=== PATIENT | male | born 1965 | race Caucasian/White ===

== ENCOUNTER 2017-08-02 09:22 | Outpatient (CLI) | payer BC | END 2017-08-02 09:23 | disposition home or self-care (01) | LOC: BICMRI 09:22 | PROVIDERS: ATTEND Orthopaedic Surgery | DX: M51.17 Intervertebral disc disorders with radiculopathy, lumbosacral region (principal); M48.061 Spinal stenosis, lumbar region without neurogenic claudication; M48.07 Spinal stenosis, lumbosacral region; M21.952 Unspecified acquired deformity of left thigh; M25.552 Pain in left hip; M16.12 Unilateral primary osteoarthritis, left hip | CPT/HCPCS: 72148; 72195 ==

== ENCOUNTER 2019-02-25 06:41 | Outpatient (CLI) | payer BC ==
--- NOTE | 2019-02-26 14:18 | EKG ---
Test Reason : Blood Pressure : / mmHG Vent. Rate : 084 BPM Atrial Rate : 084 BPM P-R Int : 166 ms QRS Dur : 100 ms QT Int : 354 ms P-R-T Axes : 049 -01 021 degrees QTc Int : 418 ms Normal sinus rhythm Incomplete right bundle branch block Moderate voltage criteria for LVH, may be normal variant Borderline ECG No previous ECGs available Confirmed by STEVE CLEVELAND, DR. Shaw ([id number]) on 02/26/2019 2:17:36 PM Referred By: LAURA Confirmed By:DR. Colin WILSON MD
== END 2019-02-25 06:42 | disposition home or self-care (01) ==
LOC: LABBT 06:41
PROVIDERS: ATTEND Neurological Surgery
DX: Z01.810 Encounter for preprocedural cardiovascular examination (principal); M54.16 Radiculopathy, lumbar region
CPT/HCPCS: 93005; 93010

== ENCOUNTER 2019-03-04 07:17 | Day surgery (SDC) | payer BC ==
[2019-02-25 16:40] VITALS: BMI 41.5
[2019-03-04] MEDS ORDERED: Fentanyl 100 MCG/2 ML VIAL ONE ×2 (10:29→12:48)
[2019-03-04] MEDS ORDERED: Lidocaine 2% Jelly 5 ML TUBE ONE (10:29)
[2019-03-04] MEDS ORDERED: Bupivacaine PF 0.5% 30 ML VIAL ONE (10:50)
[2019-03-04] MEDS ORDERED: HYDROcodone/Acetaminophen 5/325 mg Tablet ONE (13:05)
[2019-03-04] MEDS ORDERED: Tamsulosin HCl 0.4 MG CAP ONE (13:20)
[2019-03-04] MEDS ORDERED: Ketorolac Tromethamine 30 MG/ML VIAL ONE (13:56)
[2019-03-04] MEDS ORDERED: Glycopyrrolate 0.2 MG/ML 5 ML SYRINGE ONE (13:56)
[2019-03-04] MEDS ORDERED: Dexamethasone 20 MG/5 ML VIAL ONE (13:56)
[2019-03-04] MEDS ORDERED: Rocuronium Bromide 10 MG/ML (10ML VIAL) ONE (13:56)
[2019-03-04] MEDS ORDERED: Lidocaine 1% PF 5 ML VIAL ONE (13:56)
[2019-03-04] MEDS ORDERED: PROPOFOL 200 MG/20 ML VIAL ONE (13:56)
[2019-03-04] MEDS ORDERED: Ondansetron PF 4 MG/2 ML Vial ONE (13:56)
--- NOTE | 2019-03-04 17:18 | OP ---
DATE OF PROCEDURE: 03/04/2019 COSMETICIAN APPRENTICE: Kike Young PA-C INDICATION: Pain. DIAGNOSIS: Lumbar radiculopathy. PROCEDURE PERFORMED: Left L4-L5 decompression. ANESTHESIA: General. DESCRIPTION OF PROCEDURE: The patient was brought into the operating room, placed under general anesthesia. He was flipped from the supine to prone position on operating room table. A linear incision was planned over the L4-L5 segment. After prepping and draping and after an appropriate operative pause, the incision was created. The soft tissues were swept left of midline. Self-retaining retractors were placed in the wound for optimal exposure. After confirming the appropriate level with C-arm fluoroscopy, high-speed cutting drill bit as well as 2 and 3 mm Kerrisons were used to perform a laminectomy along the inferior aspect of L4 and the superior aspect of L5. The laminectomy was extended laterally to encompass the medial aspect of the facet joint in order to adequately decompress the lateral recess, and therefore, the descending left L5 nerve root. After completing the decompression, the wound was irrigated. Hemostasis was maintained throughout. The wound was then closed in anatomic layers and a pressure dressing was applied. There were no known procedural complications. Job ID: [id number]
== END 2019-03-04 15:55 | disposition home or self-care (01) ==
LOC: SDC 07:17
PROVIDERS: ATTEND Neurological Surgery
PROC: 00NY0ZZ Release Lumbar Spinal Cord, Open Approach (ICD-10-PCS; principal; 2019-03-04)
DX: M54.16 Radiculopathy, lumbar region (principal); I10 Essential (primary) hypertension; Z79.899 Other long term (current) drug therapy
CPT/HCPCS: 76000; J0690; J1100; J1885; J2001; J2405; J2704; J3010; S0020

== ENCOUNTER 2019-08-21 10:37 | Outpatient (CLI) | payer BC ==
--- NOTE | 2019-08-21 11:13 | RAD ---
RADIOGRAPH LUMBAR SPINE 4 VIEWS: DATE: 08/21/2019 HISTORY: 54-year-old male with lumbar radiculopathy. TECHNIQUE: All views are standing. AP. Lateral views in flexion, neutral, and extension. COMPARISON: 08/22/2017 FINDINGS: For the purposes of this report, the level with hypoplastic ribs will be designated as T12. 5 lumbar type vertebrae inferior to that level. Minimal chronic anterior wedging of L1, T12, and T11. Lumbar vertebral body heights are maintained. Grade 1 anterolisthesis of L4 on L5 which is minimally worse u donal flexion and minimally improved upon extension. Severe degenerative facet hypertrophy on the right at L4-5. Mild disc space narrowing at several levels, especially L4-5. No severe disc space chavo rowing. No major interval change. IMPRESSION: 1. Grade 1 spondylolisthesis, minimally unstable, at L4-5, due to facet osteoarthrosis. 2. No interval change.
--- NOTE | 2019-08-21 12:37 | MRI ---
LUMBAR SPINE MRI WITHOUT IV CONTRAST: Date: 08/21/2019 HISTORY: Lumbar radiculopathy. TECHNIQUE: Multiplanar, multisequence MRI examination of lumbar spine is performed without IV contrast. FINDINGS: Scattered disc desiccation changes and degenerative changes and facet arthrosis changes. Evidence for postsurgical change dorsally at the L4-L5 level. Conus medullaris region is unremarkable. No evidenc e for acute abnormal marrow edema. T12-L1: No significant stenosis. L1-L2: Mild disc bulging, but without significant associated stenosis. L2-L3: Slight lateral recess stenosis. L3-L4: Mild central canal and moderate lateral recess stenosis with a small focal protrusion in the right paracentral region and slightly more marked right ventral lateral recess stenosis. L4-L5: Very mild Grade I anterolisthesis of L4 on L5. Moderate central canal and lateral recess sten osis, worse on the left side, with bilateral foraminal stenosis, moderate. L5-S1: Large right paracentral focal protrusion with right lateral recess stenosis and right foramin al stenosis and some depression of the right S1 nerve root. IMPRESSION: Large right paracentral disc protrusion with right lateral recess and right foraminal stenosis and de pression of the right S1 nerve root. Additional stenotic changes at L4-L5 with very mild Grade I ante rolisthesis at L3-L4 levels as above. POS: C
== END 2019-08-21 10:38 | disposition home or self-care (01) ==
LOC: TBSIIMAG 10:37
PROVIDERS: ATTEND Neurological Surgery
DX: M47.26 Other spondylosis with radiculopathy, lumbar region (principal); M43.16 Spondylolisthesis, lumbar region; M51.26 Other intervertebral disc displacement, lumbar region; G58.8 Other specified mononeuropathies
CPT/HCPCS: 72120; 72148

== ENCOUNTER 2020-02-26 06:24 | Outpatient (CLI) | payer BC ==
[2020-02-26 10:17] LABS: Anion Gap 17 mmol/L (10-20); BUN (Urea Nitrogen) 13 mg/dL (8.4-25.7); Calc. Creatinine Clearance 0 mL/min (70-130); Carbon Dioxide 23 mmol/L (22-29); Chloride 103 mmol/L (98-107); Estimated GFR-MDRD Greater than 90; Glucose 106 mg/dL (70-105); Potassium 3.9 mmol/L (3.5-5.1); Sodium 139 mmol/L (136-145)
[2020-02-26 17:05] LABS: SARS-CoV-2 MS2 Positive; SARS-CoV-2 N Gene Negative; SARS-CoV-2 S Gene Negative; SARS-CoV-2 by NAA Not Detected (NotDetected); SARS-CoV-2 orf1ab Negative
== END 2020-02-26 06:25 | disposition home or self-care (01) ==
LOC: LABBT 06:24
PROVIDERS: ATTEND Neurological Surgery
DX: Z01.818 Encounter for other preprocedural examination (principal); M54.16 Radiculopathy, lumbar region; Z20.828 Contact with and (suspected) exposure to other viral communicable diseases
CPT/HCPCS: 80048; 87635; 93005; 93010; U0003

== ENCOUNTER 2020-03-02 05:27 | Day surgery (SDC) | payer BC ==
[2020-02-25 13:39] VITALS: BMI 37.2
--- NOTE | 2020-03-01 21:44 | HP ---
HISTORY OF PRESENT ILLNESS: Mr. Chavez is a 54-year-old man known to us for prior left-sided L4-5 decompression performed nearly one year ago. He presents now with left-sided buttock pain that radiates to L5 and partial S1 pattern and stops at the knee. He has had an updated MRI, TBSI as well as flexion-extension views of the lumbar spine. Both of these show slight grade 1 spondylolisthesis at L4-L5 with minimal motion. There is a still significant pathology on the right including disk bulge at L4-L5 and at L3, although he has no pain on the right side. In the left, he does have L4-5 lateral recess stenosis from scar and what appears to be possible synovial cyst. He has attempted injections by Dr. Michaud, but none of them provided lasting relief. He hopes to discuss possible surgical intervention. PAST MEDICAL HISTORY: Chronic pain syndrome, hypertension, osteoarthritis. PAST SURGICAL HISTORY: Herniorrhaphy, lumbar decompression. MEDICATIONS: 1. Tramadol. 2. Gabapentin. 3. Meloxicam. 4. Tylenol. 5. Lisinopril. ALLERGIES: NO KNOWN DRUG ALLERGIES. PHYSICAL EXAMINATION: Deferred for telehealth visit. ASSESSMENT: Lumbar radiculopathy. PLAN: Dr. Littlejohn met with the patient. Imaging advocated for bilateral reoperation of L4-5 decompression. We explained to the patient the risks, benefits, and alternatives to the procedure. The patient expressed understanding and elected to moved forward with surgery as discussed. I do believe the patient is mentally competent capable of making medical decisions for himself. We will move forward with surgery as planned. Job ID: [id number]
[2020-03-02] MEDS ORDERED: Fentanyl 250 MCG/5 ML VIAL ONE (06:20)
[2020-03-02] MEDS ORDERED: Bupivacaine PF 0.5% 30 ML VIAL ONE (06:48)
[2020-03-02] MEDS ORDERED: EPINEPHrine 1 MG/ML AMP ONE (06:48)
[2020-03-02] MEDS ORDERED: Thrombin 5000 UNITS/5 ML VIAL ONE (06:48)
[2020-03-02] MEDS ORDERED: SUGAMMADEX SODIUM 500 MG/5 ML VIAL ONE (08:31)
[2020-03-02] MEDS ORDERED: SUGAMMADEX SODIUM 200 MG/2 ML VIAL ONE (08:32)
--- NOTE | 2020-03-02 08:50 | OP ---
DATE OF PROCEDURE: 03/02/2020 OPERATIONS INTERN: Kike Young PA-C INDICATION: Pain. DIAGNOSIS: Lumbar stenosis with underlying lumbar radiculopathy. PROCEDURE PERFORMED: Reoperation of L4-5 decompression. ANESTHESIA: General. DESCRIPTION OF PROCEDURE: The patient was brought into the operating room and placed under general anesthesia. He was flipped from the supine to prone position on the operating room table. A linear incision was planned at the L4-L5 segment which encompassed an area of a prior incision. After prepping and draping and after an appropriate preoperative pause, the incision was created. The soft tissues were swept away from midline. A self-retaining retractor was placed for optimal exposure. After confirming the appropriate level with C-arm fluoroscopy, an Adson rongeur was used to remove the spinous process along the inferior aspect of L4 and the superior aspect of L5. The laminectomy was completed using high-speed cutting drill bit as well as 2, 3, and 4 mm Kerrisons. The laminectomy was extended laterally to encompass the medial aspect of the facet joints. There did appear to be synovial cyst present on the right side that was not evident on the MRI scan. This was carefully removed. After completing the procedure, the L4-5 central canal as well as lateral recesses were decompressed bilaterally. After completing the decompression, the wound was irrigated. Hemostasis was maintained throughout. The wound was then closed in anatomic layers, and a pressure dressing was applied. There were no known procedural complications. Job ID: [id number]
[2020-03-02] MEDS ORDERED: Fentanyl 100 MCG/2 ML VIAL ONE (08:55)
[2020-03-02] MEDS ORDERED: Tamsulosin HCl 0.4 MG CAP ONE (09:46)
[2020-03-02] MEDS ORDERED: HYDROcodone/Acetaminophen 5/325 mg Tablet ONE (10:24)
[2020-03-02] MEDS ORDERED: Lidocaine 1% PF 5 ML VIAL ONE (13:46)
[2020-03-02] MEDS ORDERED: ePHEDrine 50 MG/ML VIAL ONE (13:46)
[2020-03-02] MEDS ORDERED: Glycopyrrolate 0.2 MG/ML 5 ML SYRINGE ONE (13:46)
[2020-03-02] MEDS ORDERED: PROPOFOL 200 MG/20 ML VIAL ONE (13:46)
[2020-03-02] MEDS ORDERED: Ketorolac Tromethamine 30 MG/ML VIAL ONE (13:46)
[2020-03-02] MEDS ORDERED: Ondansetron PF 4 MG/2 ML Vial ONE (13:46)
[2020-03-02] MEDS ORDERED: Dexamethasone 20 MG/5 ML VIAL ONE (13:46)
[2020-03-02] MEDS ORDERED: Rocuronium Bromide 10 MG/ML (10ML VIAL) ONE (13:46)
== END 2020-03-02 11:00 | disposition home or self-care (01) ==
LOC: SDC 05:27
PROVIDERS: ATTEND Neurological Surgery
PROC: 00NY0ZZ Release Lumbar Spinal Cord, Open Approach (ICD-10-PCS; principal; 2020-03-02)
DX: M48.061 Spinal stenosis, lumbar region without neurogenic claudication (principal); M54.16 Radiculopathy, lumbar region; M43.16 Spondylolisthesis, lumbar region; G89.4 Chronic pain syndrome; I10 Essential (primary) hypertension; M19.90 Unspecified osteoarthritis, unspecified site; Z79.899 Other long term (current) drug therapy
CPT/HCPCS: 76000; J0171; J0690; J1100; J1885; J2405; J2704; J3010; J3490; S0020

== ENCOUNTER 2020-05-27 10:30 | Inpatient (IN) | payer BC ==
[2020-05-29 13:26] VITALS: BMI 36.9
[2020-06-01] MEDS ORDERED: Fentanyl 100 MCG/2 ML VIAL ONE (06:26)
[2020-06-01] MEDS ORDERED: Midazolam HCl 2 mg/2 ml Vial ONE (06:26)
[2020-06-01] MEDS ORDERED: Vancomycin 1.5 GRAM/300 ML BAG ONE (06:49)
[2020-06-01] MEDS ORDERED: Tranexamic Acid 1,000 MG/10 ML VIAL ONE (06:49)
[2020-06-01] MEDS ORDERED: Sodium Chloride 0.9% 100 ML ONE (06:49)
[2020-06-01] MEDS ORDERED: Acetaminophen 325 MG TAB PO PRN (06:55)
[2020-06-01] MEDS ORDERED: Promethazine HCl 25 MG/ML VIAL IM PRN ×3 (06:55→08:00)
[2020-06-01] MEDS ORDERED: diphenhydrAMINE 25 MG CAP PO PRN ×2 (06:55→07:00)
[2020-06-01] MEDS ORDERED: Ondansetron PF 4 MG/2 ML Vial IVP PRN ×2 (06:55→07:00)
[2020-06-01] MEDS ORDERED: HYDROcodone/Acetaminophen 10/325 mg Tablet PO PRN ×2 (06:55)
[2020-06-01] MEDS ORDERED: Zolpidem Tartrate 5 MG TAB PO PRN ×2 (06:55→07:00)
[2020-06-01] MEDS ORDERED: Acetaminophen 500 MG TAB PO PRN (06:56)
[2020-06-01] MEDS ORDERED: Naloxone HCl 0.4 mg/ml Vial IV PRN (07:00)
[2020-06-01] MEDS ORDERED: diphenhydrAMINE 50 MG/ML VIAL IM PRN (07:00)
[2020-06-01] MEDS ORDERED: traMADol HCl 50 MG TAB PO PRN ×2 (07:00)
[2020-06-01] MEDS ORDERED: Bupivacaine 0.25% 10 ML VIAL EPIDURAL PRN (07:00)
[2020-06-01] MEDS ORDERED: Promethazine HCl 25 MG SUPP PR PRN (07:00)
[2020-06-01] MEDS ORDERED: Naloxone HCl 0.4 mg/ml Vial IVP PRN (07:00)
[2020-06-01] MEDS ORDERED: diphenhydrAMINE 50 MG/ML VIAL IVP PRN (07:00)
[2020-06-01] MEDS ORDERED: Hydrocerin (Eucerin) Cream 120 gm Jar TOP PRN (07:00)
[2020-06-01] MEDS ORDERED: HYDROcodone/Acetaminophen 5/325 mg Tablet PO PRN ×2 (07:00)
[2020-06-01] MEDS ORDERED: Ropivacaine 0.5% HCl/PF (150 MG/30 ML VIAL) ONE (07:04)
[2020-06-01] MEDS ORDERED: Ondansetron HCl/PF 4 MG/2 ML Vial IVP PRN (08:00)
[2020-06-01] MEDS ORDERED: Promethazine HCl 25 MG/ML VIAL SLOW IVP PRN (08:00)
[2020-06-01] MEDS ORDERED: Promethazine HCl 25 MG/ML VIAL ONE (08:58)
[2020-06-01] MEDS ORDERED: Non-Formulary Item 1 EACH (Multivitamin [Multi-Vitamin Daily] 1 TABLET Tablet) PO SCH (09:00)
--- NOTE | 2020-06-01 09:13 | OP ---
DATE OF PROCEDURE: 06/01/2020 PROCEDURE PERFORMED: Left total hip arthroplasty using a [place] Accolade II stem, size 5 with a 36 mm, +5 ceramic head, a 54 mm acetabulum with a 36 mm X3 liner. REHAB TECH: Nilo. ESTIMATED BLOOD LOSS: 200. SPECIMEN: None. DRAINS: None. COMPLICATIONS: None. DESCRIPTION OF PROCEDURE: After informed consent was obtained in the preoperative holding area, the patient was taken to the operative suite where general anesthesia was induced. The patient was then positioned in the lateral decubitus position. The hip was then prepped and draped in usual sterile fashion. The patient received preoperative antibiotics. Prior to incision, time-out was called and all members of the surgical team agreed upon site, surgeon, and patient. After this, a longitudinal incision was made directly over the trochanter, noted by palpation extending 2 fingerbreadths above and below the trochanter. The deeper subcutaneous layer was undermined with Bovie electrocautery. The iliotibial band was encountered and incised sharply and the plane below this was developed bluntly. A Charnley retractor was placed to hold this opened. The lateral aspect of the trochanter and the abductor muscles were encountered and then reflected anteriorly off the trochanter using Bovie electrocautery. Once this was completed, the anterior capsule was then encountered and identified and copious capsulotomy was carried out, exposing the femoral neck and head. Dislocation maneuver was then performed and an in situ provisional neck cut was then made using the oscillating saw. Attention was then turned to acetabular preparation and sequential reaming was carried out up to the appropriate diameter. A trial was then malleted into place with good firm resistance and no pullout. The permanent acetabular shell was then malleted squarely into place, as was the appropriate liner. Once completed, the wound was copiously irrigated and attention was then turned to femoral preparation. Flexion and external rotation were performed of the exposed thigh and femoral elevators were then placed at the proximal aspect of the wound. Canal finder was used to establish the length of the canal and sequential reaming was carried out, followed by broaching. Once the appropriate stability was established with the trial broaches with flexion, extension and rotational stability, we did trial with neutral and 2 mm offset incremental necks. Once the appropriate size was decided upon, with good stability noted with flexion, extension, internal and external rotation and shuck being negative, we removed the femoral trial broach and malletted into place the permanent prosthesis with good firm fit, which was also stable to rotation. Again, the hip felt very stable to flexion, extension, internal and external rotation. Leg lengths appeared near anatomic clinically and we were quite happy with prosthesis placement. Copious irrigation was then carried out through the entirety of the wound. Primary closure of the abductors was accomplished with interrupted #2 Vicryl [id number] stitches and the IT band was then closed with interrupted #2 Vicryl, oversewn with a #2 running barbed Quill stitch. Subcutaneous fascia was closed with running barbed Quill stitch and a subcuticular Monocryl barbed Quill stitch was used for skin closure and augmented with skin cement. A sterile dressing was applied. The procedure was terminated without any complication. All counts were correct. The patient was awakened in the operative suite and taken to the recovery room in stable condition. The district administrative assistant/co-surgeon was present through the entire procedure and was responsible for providing exposure, tissue retraction and any necessary limb or tissue manipulation required to obtain necessary reduction or hardware placement. The district administrative assistant/co-surgeon also provided bleeding control, tissue closure, and suturing in conjunction with the primary surgeon. Job ID: [id number]
[2020-06-01] MEDS: Sodium Chloride 0.9% 1,000 ML IV SCH ×2 (09:40→18:05)
[2020-06-01] MEDS ORDERED: PROPOFOL 200 MG/20 ML VIAL ONE (09:49)
[2020-06-01] MEDS ORDERED: Lidocaine 1.5% w/Epi 1:200K 30 ML VIAL (Epid Use) ONE (09:49)
[2020-06-01] MEDS ORDERED: Rocuronium Bromide 10 MG/ML (10ML VIAL) ONE (09:49)
[2020-06-01] MEDS ORDERED: ePHEDrine 50 MG/ML VIAL ONE (09:49)
[2020-06-01] MEDS ORDERED: Dexamethasone 20 MG/5 ML VIAL ONE (09:49)
[2020-06-01] MEDS ORDERED: Lidocaine 1% PF 5 ML VIAL ONE (09:49)
[2020-06-01] MEDS ORDERED: Ondansetron PF 4 MG/2 ML Vial ONE (09:49)
[2020-06-01] MEDS: Lisinopril/Hydrochlorothiazide 20 mg/12.5 mg Tablet PO SCH ×2 (10:39→10:41)
[2020-06-01] MEDS: Cholecalciferol 1,000 UNITS (25 MCG) TAB PO SCH (10:39)
[2020-06-01] MEDS: Aspirin 81 mg Enteric Coated Tablet PO SCH ×2 (10:39→20:06)
--- NOTE | 2020-06-01 10:43 | RAD ---
LEFT HIP 2 VIEWS: INDICATION: Postop left hip. COMPARISON: Pelvic radiograph dated 05/07/2020. FINDINGS: There is a left total hip prosthesis that has been intervally placed. The prosthetic components proj ect in the expected position. There is intraarticular and scattered periarticular soft tissue gas co nsistent with patient's recent postoperative state. No definite immediate radiographic complication is evident involving the left hip. IMPRESSION: Postoperative left hip. POS: [facility]
[2020-06-01] MEDS: Clindamycin/D5W 900 MG in Premix Bag 1 BAG IVPB SCH ×2 (11:38→18:05)
[2020-06-01] MEDS: Ketorolac Tromethamine 30 MG/ML VIAL IVP SCH ×2 (11:38→18:05)
[2020-06-01] MEDS ORDERED: Ketorolac Tromethamine 30 MG/ML VIAL IM SCH (14:00)
[2020-06-02] MEDS: fentaNYL Citrate/PF 500 MCG, Bupivacaine 10 ML in Sodium Chloride 0.9% 80 ML EPIDURAL SCH ×2 (01:37→17:55)
[2020-06-02] MEDS: Sodium Chloride 0.9% 1,000 ML IV SCH ×3 (04:37→22:08)
[2020-06-02] MEDS: Ketorolac Tromethamine 30 MG/ML VIAL IVP SCH ×5 (05:25→23:54)
[2020-06-02 05:43] LABS: Hemoglobin 11.8 g/dL (14.0-18.0); Mean Corpuscular HGB CONC 34.5 g/dL (32.0-36.0); Mean Corpuscular Hemoglobin 32.5 pg (27.0-31.0); Mean Corpuscular Volume 94.1 fL (78.0-98.0); Mean Platelet Volume 7.8 fL (7.4-10.4); Platelet Count 195 thou/uL (130-400); RBC Distribution Width 12.4 % (11.5-14.5); Red Blood Cell (RBC) Count 3.62 mill/uL (4.70-6.10); White Blood Cell (WBC) Count 10.7 thou/uL (4.8-10.8)
[2020-06-02] MEDS: Lisinopril/Hydrochlorothiazide 20 mg/12.5 mg Tablet PO SCH (08:26)
[2020-06-02] MEDS: Cholecalciferol 1,000 UNITS (25 MCG) TAB PO SCH (08:26)
[2020-06-02] MEDS: Ferrous Gluconate 324 MG TAB PO SCH ×2 (08:26→17:52)
[2020-06-02] MEDS: Senokot S 8.6-50 MG TAB PO SCH ×2 (08:26→20:27)
[2020-06-02] MEDS: Multivitamin W/ Minerals 1 TAB PO SCH (08:26)
[2020-06-02] MEDS: Aspirin 81 mg Enteric Coated Tablet PO SCH ×2 (08:26→20:27)
[2020-06-03] MEDS: Ketorolac Tromethamine 30 MG/ML VIAL IVP SCH (05:02)
[2020-06-03 07:30] VITALS: TEMP 98.1
[2020-06-03] MEDS: Ferrous Gluconate 324 MG TAB PO SCH (08:40)
[2020-06-03] MEDS: Cholecalciferol 1,000 UNITS (25 MCG) TAB PO SCH (08:41)
[2020-06-03] MEDS: Multivitamin W/ Minerals 1 TAB PO SCH (08:41)
[2020-06-03] MEDS: Senokot S 8.6-50 MG TAB PO SCH (08:41)
[2020-06-03] MEDS: Lisinopril/Hydrochlorothiazide 20 mg/12.5 mg Tablet PO SCH (08:41)
[2020-06-03] MEDS: Aspirin 81 mg Enteric Coated Tablet PO SCH (08:41)
[2020-06-03] MEDS: Sodium Chloride 0.9% 1,000 ML IV SCH (09:00)
[2020-06-03 10:40] VITALS: BP 124/75
[2020-06-03] MEDS ORDERED: HYDROcodone/Acetaminophen 10/325 mg Tablet PO PRN ×2 (10:41)
== END 2020-06-03 13:45 | disposition home or self-care (01) | DRG 470 ==
LOC: SURG A 06-01 05:33 → SJJU 06-01 10:05
PROVIDERS: ADMIT Orthopaedic Surgery; ATTEND Orthopaedic Surgery
PROC: 0SRB039 Replacement of Left Hip Joint with Ceramic Synthetic Substitute, Cemented, Open Approach (ICD-10-PCS; principal; 2020-06-01)
DX: M16.12 Unilateral primary osteoarthritis, left hip (principal); Z20.822 Contact with and (suspected) exposure to COVID-19; I10 Essential (primary) hypertension; J30.2 Other seasonal allergic rhinitis; M54.16 Radiculopathy, lumbar region; Z79.899 Other long term (current) drug therapy
CPT/HCPCS: 36415; 85027; J0690; J1100; J1885; J2001; J2250; J2405; J2550; J2704; J2795; J3010; J3370; J3490

== ENCOUNTER 2023-03-02 13:42 | Outpatient (CLI) | payer BC ==
[2023-03-02 16:15] LABS: #Eosinphils 0.3 10x3/uL (0.0-0.5); #Monocytes 0.8 10x3/uL (0.0-1.1); %Basophils 0.3 % (0.0-2.0); %Eosinophils 2.9 % (0.0-6.0); %Lymphocytes 17.9 % (18.0-47.0); %Monocytes 7.2 % (0.0-10.0); %Neutrophils 71.3 % (40.0-75.0); Hematocrit 42.5 % (38.8-50.0); Hemoglobin 14.3 g/dL (13.5-17.5); Mean Corpuscular HGB CONC 33.6 g/dL (32.0-36.0); Mean Corpuscular Hemoglobin 29.9 pg (27.0-33.0); Mean Corpuscular Volume 88.9 fl (81.2-95.1); Mean Platelet Volume 10.1 fl (7.4-10.4); Platelet Count 262 10x3/uL (150-450); RBC Distribution Width 13.5 % (11.5-14.5); Red Blood Cell (RBC) Count 4.78 10x6/uL (4.32-5.72); White Blood Cell (WBC) Count 11.2 10x3/uL (3.5-10.5)
[2023-03-02 16:28] LABS: Anion Gap 14 mmol/L (10-20); BUN (Urea Nitrogen) 12 mg/dL (8.4-25.7); Calc. Creatinine Clearance 0 mL/min (70-130); Calcium 9.2 mg/dL (7.8-10.44); Carbon Dioxide 25 mmol/L (22-29); Chloride 105 mmol/L (98-107); Estimated GFR 106; Glucose 109 mg/dL (70-105); Potassium 3.7 mmol/L (3.5-5.1); Sodium 140 mmol/L (136-145)
[2023-03-02 16:33] LABS: Prothrombin Time 10.4 sec (9.5-12.1)
== END 2023-03-02 13:43 | disposition home or self-care (01) ==
LOC: LABBT 13:42
PROVIDERS: ATTEND Orthopaedic Surgery
DX: Z01.818 Encounter for other preprocedural examination (principal); M16.11 Unilateral primary osteoarthritis, right hip
CPT/HCPCS: 80048; 85025; 85610; 87081; 93005; 93010

== ENCOUNTER 2023-03-06 05:34 | Observation (INO) | payer BC ==
[2023-03-06] MEDS ORDERED: Tranexamic Acid 1,000 MG/10 ML VIAL ONE (05:57)
[2023-03-06] MEDS ORDERED: CEFAZOLIN 2 GM VIAL ONE (05:57)
[2023-03-06] MEDS ORDERED: Sodium Chloride 0.9% 100 ML ONE ×2 (05:58→08:05)
[2023-03-06] MEDS ORDERED: Bupivacaine PF 0.5% 30 ML VIAL ONE (06:22)
[2023-03-06] MEDS ORDERED: Vancomycin (BATCH) 2 GM in Premix 1 BAG IVPB SCH (06:30)
[2023-03-06] MEDS ORDERED: fentaNYL 50 mcg/mL 1 mL Vial ONE ×2 (06:44→07:11)
[2023-03-06] MEDS ORDERED: Midazolam HCl 2 mg/2 ml Vial ONE (06:44)
[2023-03-06] MEDS ORDERED: Ondansetron PF 4 MG/2 ML Vial IVP PRN (06:46)
[2023-03-06] MEDS ORDERED: Acetaminophen 325 MG TAB PO PRN (06:46)
[2023-03-06] MEDS ORDERED: fentaNYL 50 mcg/mL 1 mL Vial SLOW IVP PRN (06:46)
[2023-03-06] MEDS ORDERED: Promethazine HCl 25 MG/ML VIAL IM PRN ×2 (06:46→08:55)
[2023-03-06] MEDS ORDERED: Zolpidem Tartrate 5 MG TAB PO PRN (06:46)
[2023-03-06] MEDS ORDERED: diphenhydrAMINE 25 MG CAP PO PRN (06:46)
[2023-03-06] MEDS ORDERED: Acetaminophen 500 MG TAB PO PRN (06:48)
[2023-03-06] MEDS ORDERED: Non-Formulary Item 1 EACH (Evolocumab [Repatha Sureclick] 140 MG/ML Pen.Injctr) SQ SCH (07:00)
[2023-03-06] MEDS ORDERED: PROPOFOL 20 ML ONE (07:09)
[2023-03-06] MEDS ORDERED: Ketorolac Tromethamine 30 MG (1 mL) VIAL ONE (07:11)
[2023-03-06] MEDS ORDERED: PROPOFOL 200 MG/20 ML VIAL ONE (07:11)
[2023-03-06] MEDS ORDERED: Rocuronium Bromide 10 MG/ML (10ML VIAL) ONE ×2 (07:11→07:32)
[2023-03-06] MEDS ORDERED: Dexamethasone 20 MG/5 ML VIAL ONE ×2 (07:11→07:56)
[2023-03-06] MEDS ORDERED: Ondansetron PF 4 MG/2 ML Vial ONE ×2 (07:11→08:24)
[2023-03-06] MEDS ORDERED: Lidocaine 1% PF 5 ML VIAL ONE (07:20)
[2023-03-06] MEDS ORDERED: Ropivacaine 0.5% HCl/PF (150 MG/30 ML VIAL) ONE (07:24)
[2023-03-06] MEDS ORDERED: fentaNYL PF 100 MCG/2 ML SYRINGE ONE (07:33)
[2023-03-06] MEDS ORDERED: CEFAZOLIN 1 GM VIAL ONE (07:57)
[2023-03-06] MEDS ORDERED: HYDROmorphone 2 MG/ML VIAL ONE (08:01)
[2023-03-06] MEDS ORDERED: Lidocaine 1% MPF 2 ML VIAL ONE (08:05)
[2023-03-06] MEDS ORDERED: SUGAMMADEX SODIUM 200 MG/2 ML VIAL ONE (08:25)
[2023-03-06] MEDS ORDERED: HYDROmorphone 2 MG/ML VIAL SLOW IVP PRN (08:55)
[2023-03-06] MEDS ORDERED: Ondansetron HCl/PF 4 MG/2 ML Vial IVP PRN (08:55)
[2023-03-06] MEDS ORDERED: Non-Formulary Item 1 EACH (Lisinopril/Hydrochlorothiazide [Lisinopril-Hctz 20-12.5 Mg Tab PO SCH (09:00)
[2023-03-06 11:14] VITALS: BMI 41.3
[2023-03-06] MEDS: fentaNYL 50 mcg/mL 1 mL Vial SLOW IVP PRN ×2 (11:17→20:53)
[2023-03-06] MEDS: Sodium Chloride 0.9% 1,000 ML IV SCH ×2 (11:18→18:22)
[2023-03-06] MEDS: Amlodipine 5 MG TAB PO SCH (11:23)
[2023-03-06] MEDS: Lisinopril 20 MG TAB PO SCH (11:24)
[2023-03-06] MEDS: Aspirin 81 mg Enteric Coated Tablet PO SCH ×2 (11:24→20:53)
[2023-03-06] MEDS: Hydrochlorothiazide 25 MG TAB PO SCH (11:24)
[2023-03-06] MEDS: CEFAZOLIN 2 GM in Sodium Chloride 0.9% 100 ML IVPB SCH ×2 (14:32→20:52)
[2023-03-06] MEDS: HYDROcodone/Acetaminophen 10/325 mg Tablet PO PRN ×3 (14:32→23:06)
[2023-03-07] MEDS: Sodium Chloride 0.9% 1,000 ML IV SCH ×2 (04:54→07:57)
[2023-03-07 06:10] LABS: Hematocrit 38.4 % (42.0-52.0); Hemoglobin 12.7 g/dL (14.0-18.0); Mean Corpuscular HGB CONC 33.1 g/dL (32.0-36.0); Mean Corpuscular Hemoglobin 30.3 pg (27.0-31.0); Mean Corpuscular Volume 91.6 fl (78.0-98.0); Mean Platelet Volume 10.2 fL (7.4-10.4); Platelet Count 239 10x3/uL (130-400); RBC Distribution Width 13.8 % (11.5-14.5); Red Blood Cell (RBC) Count 4.19 mill/uL (4.70-6.10); White Blood Cell (WBC) Count 16.2 10x3/uL (4.8-10.8)
[2023-03-07] MEDS: Lisinopril 20 MG TAB PO SCH (07:51)
[2023-03-07] MEDS: Amlodipine 5 MG TAB PO SCH (07:55)
[2023-03-07] MEDS: Hydrochlorothiazide 25 MG TAB PO SCH (07:55)
[2023-03-07] MEDS: Aspirin 81 mg Enteric Coated Tablet PO SCH (07:57)
[2023-03-07] MEDS ORDERED: Ferrous Gluconate 324 MG TAB PO SCH (08:00)
[2023-03-07] MEDS: HYDROcodone/Acetaminophen 10/325 mg Tablet PO PRN (08:01)
[2023-03-07 08:18] VITALS: BP 147/78; TEMP 98.7
[2023-03-07] MEDS ORDERED: Senokot S 8.6-50 MG TAB PO SCH (09:00)
[2023-03-07] MEDS ORDERED: Multivitamin W/ Minerals 1 TAB PO SCH (09:00)
[2023-03-07] MEDS ORDERED: Cephalexin 250 MG CAP PO SCH (12:00)
== END 2023-03-07 10:05 | disposition home or self-care (01) ==
LOC: SDC 05:34 → SURG B 11:03
PROVIDERS: ADMIT Orthopaedic Surgery; ATTEND Orthopaedic Surgery
PROC: 0SR90JZ Replacement of Right Hip Joint with Synthetic Substitute, Open Approach (ICD-10-PCS; principal; 2023-03-06)
DX: M16.11 Unilateral primary osteoarthritis, right hip (principal); I10 Essential (primary) hypertension; Z98.890 Other specified postprocedural states; Z79.899 Other long term (current) drug therapy
CPT/HCPCS: 36415; 85027; C1776; J0690; J1100; J1170; J1885; J2250; J2405; J2704; J2795; J3010; J3370; J3490; J7050; S0020